=== PATIENT | female | born 2000 | race Caucasian/White ===

== ENCOUNTER 2023-12-06 17:55 | Emergency (ER) | payer OTHER ==
[~2023-12-06] VITALS: Ht 167.6 cm; Wt 91.0 kg
[2023-12-06 17:59] VITALS: BP 128/77; O2SAT 99
[2023-12-06 18:01] VITALS: PULSE 84
[2023-12-06] MEDS ORDERED: IBUP-2030 MT (19:17)
[2023-12-06 19:46] VITALS: TEMP 98.1
[2023-12-06] MEDS: ACETAMINOPHEN 500MG TABLET PO ONE (19:46)
== END 2023-12-06 19:52 | disposition home or self-care (01) ==
LOC: ER 17:55
DX: M25.562 Pain in left knee (principal)
CPT/HCPCS: 73562; 81025; 99283

== ENCOUNTER 2024-01-11 16:24 | Emergency (ER) | payer OTHER ==
[~2024-01-11] VITALS: Ht 162.6 cm; Wt 84.0 kg
[~2024-01-11 16:24] MED LIST: IBUP-2030 MT
[2024-01-11 16:26] VITALS: O2SAT 97
[2024-01-11] MEDS ORDERED: IBUP-2030 MT (17:35)
[2024-01-11 17:55] VITALS: BP 111/62; PULSE 68; RESP 15; TEMP 98.4
== END 2024-01-11 17:56 | disposition home or self-care (01) ==
LOC: ER 16:24
DX: M25.532 Pain in left wrist (principal); M25.531 Pain in right wrist
CPT/HCPCS: 73110; 99283

== ENCOUNTER 2024-11-02 00:44 | Emergency (ER) | payer OTHER ==
[~2024-11-02] VITALS: Ht 162.6 cm; Wt 90.0 kg
[2024-11-02 00:59] VITALS: O2SAT 100
[2024-11-02] MEDS ORDERED: ONDANSETRON HCL 4MG/2ML INJ IV ONE (01:15)
[2024-11-02 01:38] LABS: HEMATOCRIT. 42.5 % (36.0-48.0); HEMOGLOBIN. 14.8 g/dL (12.0-16.0); MEAN CORPUSCULAR HGB CONC 34.8 g/dL (31.0-37.0); MEAN CORPUSCULAR VOLUME 92.1 fL (81.0-99.0); MEAN PLATELET VOLUME 7.7 fl (7.4-10.4); PLATELET 368 x1000/uL (130-400); RED BLOOD CELL COUNT 4.62 mill/uL (4.2-5.4); RED CELL DISTRIBUTION WIDTH 12.8 % (11.6-14.6); WHITE BLOOD COUNT 12.2 x1000/uL (4.5-11.0)
[2024-11-02 01:39] LABS: DIFFERENTIAL COMMENT 1
[2024-11-02 01:45] LABS: PROTHROMBIN TIME 11.2 sec (9.6-11.0)
[2024-11-02 01:54] LABS: CHLORIDE 105 mEq/L (98-107); POTASSIUM 3.7 mEq/L (3.5-5.1); SODIUM 139 mEq/L (136-145)
[2024-11-02 01:55] LABS: CALCIUM 9.7 mg/dL (8.7-10.4); CARBON DIOXIDE 20 mEq/L (21-32)
[2024-11-02 02:00] LABS: CREATININE 0.7 mg/dL (0.6-1.0); ETHANOL BLOOD < 10 mg/dL (<10); GLUCOSE 132 mg/dL (70-105); UREA NITROGEN BLOOD 9 mg/dL (9-23)
[2024-11-02 02:01] LABS: HCG SCREEN NEGATIVE
[2024-11-02 02:02] LABS: ALANINE AMINOTRANSFERASE 16 IU/L (10-49); ALBUMIN 5.2 g/dL (3.2-4.8); ASPARTATE AMINOTRANSFERASE 19 IU/L (<34); BILIRUBIN DIRECT 0.3 mg/dL (<=3.0); BILIRUBIN TOTAL 0.8 mg/dL (0.1-1.0); PROTEIN TOTAL 8.4 g/dL (6.0-8.3)
[2024-11-02 02:11] LABS: CLARITY URINE CLOUDY (CLEAR); COLOR URINE RED (YELLOW); GLUCOSE URINE NEGATIVE (NEGATIVE); KETONES URINE 4+ (NEGATIVE); LEUKOCYTE ESTERASE URINE 3+ (NEGATIVE); NITRITE URINE NEGATIVE (NEGATIVE); OCCULT BLOOD URINE 3+ (NEGATIVE); PH URINE >=9.0 (4.5-8.0); PROTEIN URINE 2+ (NEGATIVE); SPECIFIC GRAVITY URINE 1.029 (1.005-1.030)
[2024-11-02 02:28] LABS: *AMPHETAMINES SCREEN URINE NEGATIVE (NEGATIVE); *BARBITURATES SCREEN URINE NEGATIVE (NEGATIVE); *BENZODIAZEPINES SCREEN URINE NEGATIVE (NEGATIVE); *COCAINE SCREEN URINE NEGATIVE (NEGATIVE)
[2024-11-02 02:29] LABS: CANNABINOID URINE SCREEN PRESUMPTIVE POSITIVE (NEGATIVE); ECSTASY MDMA SCREEN URINE NEGATIVE (NEGATIVE); METHADONE URINE SCREEN NEGATIVE (NEGATIVE); OPIATES URINE SCREEN NEGATIVE (NEGATIVE); PHENCYCLIDINE URINE SCREEN NEGATIVE (NEGATIVE)
[2024-11-02 02:38] LABS: SQUAMOUS EPITHELIAL CELL URINE FEW /lpf (RARE/1+)
[2024-11-02 02:40] LABS: RBC URINE 25-50 /hpf (0-2)
[2024-11-02 02:43] LABS: BACTERIA URINE 1+
[2024-11-02] MEDS: SODIUM CHLORIDE 0.9% 1,000 ML IV ONE (02:52)
[2024-11-02] MEDS: ONDANSETRON HCL 4MG/2ML INJ IV NR (03:01)
[2024-11-02 03:23] LABS: PLATELET ESTIMATE NMN
[2024-11-02] MEDS ORDERED: NITR100C MT (04:07)
[2024-11-02] MEDS ORDERED: ONDA-239 PO (04:07)
[2024-11-02 05:09] VITALS: BP 110/60; PULSE 73; RESP 20; TEMP 37.1; O2SAT 98
== END 2024-11-02 05:12 | disposition home or self-care (01) ==
LOC: ER 00:44
DX: N39.0 Urinary tract infection, site not specified (principal); Z90.710 Acquired absence of both cervix and uterus
CPT/HCPCS: 80076; 80305; 80048; 81003; 81025; 80320; 84703; 83690; 85025; 85610; 36415; 76705; 96361; 96374; 99285; J2405; J7030; Z7610; G0480